=== PATIENT | female | born 1945 | race Caucasian/White ===

== ENCOUNTER 2020-08-20 19:17 | Inpatient (IN) | payer MEDICARE, OTHER ==
[~2020-08-20] VITALS: Ht 162.6 cm; Wt 59.4 kg
--- NOTE | 2020-08-20 20:09 | NUR ---
BLOOD COLLECTED AND SENT TO THE LAB
--- NOTE | 2020-08-20 20:13 | NUR ---
PATIENT CAME TO THE ER BED 7 C/O LEFT SIDED CHEST PAIN WITH PRESSURE SINCE 100 ON AND OFF. PATIENT STATES THAT SHE HAS NEVER HAD THIS PAIN BEFORE. PATIENT HAS HAD L BREAST CANCER AND HAD RADIATION THERAPY IN JUNE 2019. PATIENT CURRENTLY ON ANTI-CANCER MEDICATIONS. PATIENT IS ALERT AND ORIENTED x4. CURRENTLY DENIES SHORT OF BREATH. PATIENT IS CONNECTED TO THE SALES MANAGER. WILL CONTINUE TO MONITOR THE PATIENT CLOSELY.
[2020-08-20 20:28] LABS: CALCIUM, SERUM 9.2 mg/dL (8.5-10.1); CARBON DIOXIDE 27 mmol/L (21-32); CHLORIDE 105 mmol/L (98-107); CREATININE 0.8 mg/dL (0.6-1.3); GLUCOSE 98 mg/dL (74-106); POTASSIUM 4.2 mmol/L (3.5-5.1); SODIUM SERUM 141 mmol/L (136-145); UREA NITROGEN, BLOOD 23 mg/dL (7-18)
[2020-08-20] MEDS ORDERED: IV NS 0.9% 250 ML IV ONE (20:49)
[2020-08-20] MEDS ORDERED: IOHEXOL-350 100 ML VIAL IV ONE (20:49)
[2020-08-20] MEDS ORDERED: CT SWABBABLE VALVE TRANS SET 1 EA INFUS.SET MC ONE (20:49)
[2020-08-20 20:58] LABS: BASOPHILS # (AUTO) 0.1 K/uL (0.0-0.2); BASOPHILS % (AUTO) 1.3 % (0.0-2.0); HEMATOCRIT 41 % (33-45); HEMOGLOBIN 13.5 g/dL (11.5-14.8); LYMPHOCYTES # (AUTO) 1.4 K/uL (0.8-4.8); LYMPHOCYTES % (AUTO) 26.6 % (20.0-44.0); MEAN CORPUSCULAR HGB CONC 33 g/dl (31.0-36.0); MEAN CORPUSCULAR VOLUME 90 fL (82-100); MONOCYTES # (AUTO) 0.5 K/uL (0.1-1.30); MONOCYTES % (AUTO) 10.1 % (2.0-12.0); NEUTROPHILS # (AUTO) 3.1 K/uL (1.8-8.9); PLATELET COUNT (AUTO) 184 K/uL (150-450); RED BLOOD CELL COUNT(AUTO) 4.54 MIL/uL (4.0-5.2); WHITE BLOOD COUNT (AUTO) 5.2 K/uL (4.3-11.0)
--- NOTE | 2020-08-20 21:02 | NUR ---
PER DR DALAL, CANCEL CT WITH CONTRAST
--- NOTE | 2020-08-20 21:10 | NUR ---
PER ADMITTING, PT OKAY TO STAY HERE
[2020-08-20] MEDS ORDERED: NITROGLYCERIN PACKET 1 GM PACKET TOP ONE (21:30)
[2020-08-20] MEDS ORDERED: ASPIRIN 325 MG TABLET PO ONE (21:30)
--- NOTE | 2020-08-20 22:05 | NUR ---
PER DR DALAL, NEERU VERA VOLCANOLOGY TEACHER ACCEPTED
--- NOTE | 2020-08-20 22:24 | NUR ---
CALLED FOR TELE BED
[2020-08-20] MEDS ORDERED: ONDANSETRON HCL/PF 4 MG/2 ML VIAL IVP PRN (22:30)
[2020-08-20] MEDS ORDERED: MAGNESIUM HYDROXIDE 30 ML UDC PO PRN (22:30)
[2020-08-20] MEDS ORDERED: NITROGLYCERIN 0.4 MG/TAB BOTTLE SL PRN (22:30)
[2020-08-20] MEDS ORDERED: MORPHINE SULFATE INJ 2 MG/ML DISP.SYRIN IV PRN (22:30)
[2020-08-20] MEDS ORDERED: Z GUARD REMEDY 2 OZ OINT TP PRN (22:30)
--- NOTE | 2020-08-20 23:04 | NUR ---
COVID SWAB AND SENT TO LAB
[2020-08-21] VITALS (7 sets, daily range): BP systolic 103–126; BP diastolic 49–71
--- NOTE | 2020-08-21 00:03 | NUR ---
REPORT GIVEN TO VIVIEN CORNELL FOR TATYANA
[2020-08-21] MEDS ORDERED: ALPR0.5T PO (00:09)
[2020-08-21] MEDS ORDERED: EXEM25TA5 PO ×2 (00:09→02:19)
[2020-08-21] MEDS ORDERED: AMLO2.5T4 PO (00:09)
[2020-08-21] MEDS ORDERED: LEVO50TA8 PO (00:09)
--- NOTE | 2020-08-21 00:35 | NUR ---
RN ADMITTING NOTE REPORT RECEIVED FROM IFRAH PUGA. PATIENT ADMITTED TO TELE RM 308-2. PATIENT IS A/O X 4, ABLE TO MAKE NEEDS KNOWN. AMBULATES STEADILY. BREATHING EVEN AND UNLABORED, DOES NOT COMPLAIN OF ANY SOB OR CHEST PAIN AT THIS TIME. PATIENT'S SKIN IS INTACT. IV ACCESS R HAND 20 G PATENT AND INTACT. ORIENTED PATIENT TO THE ROOM, CHARGE NURSE, PRIMARY NURSE, AND INTEGRATION ASSISTANT. PATIENT BELONGINGS INVENTORIED AND RECORDED. SAFETY MEASURES IN PLACE: CALL LIGHT WITHIN REACH, BED IN LOCKED AND LOWEST POSITION, SIDE RAILS UP. WILL MONITOR PATIENT CLOSELY.
[2020-08-21] MEDS: IV NS 0.9% 1,000 ML IV PRN ×2 (00:53→20:52)
[2020-08-21] MEDS: ENOXAPARIN SODIUM 40 MG/0.4 ML DISP.SYRIN SQ SCH ×2 (01:21→20:44)
[2020-08-21] MEDS ORDERED: GABA-536 PO (02:19)
[2020-08-21] MEDS ORDERED: ACET325C7 PO (02:19)
[2020-08-21] MEDS ORDERED: FLUO15OI TP (02:19)
--- NOTE | 2020-08-21 07:15 | NUR ---
RN CLOSING NOTE PATIENT IN BED, AWAKE. DOES NOT COMPLAIN OF ANY CHEST PAIN AT THIS TIME. STILL TOLERATES ROOM AIR, NO SOB/DISTRESS NOTED. IV FLUIDS STILL ONGOING. ALL NEEDS MET AND ATTENDED, ALL ORDERS CARRIED OUT. SAFETY MEASURES MAINTAINED. ENDORSED TO DAY SHIFT NURSE FOR TATYANA. HOME MEDICATION BOTTLES GIVEN TO PHARMACY. Addendum: 08/21/20 at 0732 by IDA SAEED RN TELE READING READS SINUS FLORIAN 50 BPM WITH TRIGEMINY.
--- NOTE | 2020-08-21 07:30 | NUR ---
SAFETY CONSULTANT NOTES PT IN BED, AWAKE, ALERT AND ORIENTED, EATING BREAKFAST, NO COMPLAINT OF PAIN OR ANY DISCOMFORT, RESPIRATIONS NORMAL, IV FLUIDS INFUSING WELL, NEEDS ATTENDED.
[2020-08-21] MEDS ORDERED: Medication Not On Formulary EA (Acetaminophen (Tylenol) 650 MG) PO PRN (08:30)
[2020-08-21] MEDS ORDERED: LEVOTHYROXINE SODIUM 50 MCG TABLET PO SCH (08:30)
[2020-08-21] MEDS ORDERED: ALPRAZOLAM 0.5 MG TABLET PO PRN ×2 (08:30→10:00)
[2020-08-21] MEDS ORDERED: AMLODIPINE BESYLATE 2.5 MG TABLET PO SCH ×3 (09:00→22:00)
--- NOTE | 2020-08-21 09:05 | NUR ---
FIRE PREVENTION CAPTAIN NOTES PT SEEN BY DR. SCHRADER AND DR. ZALDIVAR, PLAN OF CARE DISCUSSED WITH PT, VERBALIZED UNDERSTANDING.
[2020-08-21 09:19] LABS: BASOPHILS # (AUTO) 0.1 K/uL (0.0-0.2); BASOPHILS % (AUTO) 2.4 % (0.0-2.0); HEMATOCRIT 39 % (33-45); HEMOGLOBIN 12.8 g/dL (11.5-14.8); LYMPHOCYTES # (AUTO) 1.1 K/uL (0.8-4.8); LYMPHOCYTES % (AUTO) 25.5 % (20.0-44.0); MEAN CORPUSCULAR HGB CONC 33 g/dl (31.0-36.0); MEAN CORPUSCULAR VOLUME 90 fL (82-100); MONOCYTES # (AUTO) 0.4 K/uL (0.1-1.30); MONOCYTES % (AUTO) 8.8 % (2.0-12.0); NEUTROPHILS # (AUTO) 2.5 K/uL (1.8-8.9); NEUTROPHILS % (AUTO) 59.3 % (43.0-81.0); PLATELET COUNT (AUTO) 157 K/uL (150-450); RED BLOOD CELL COUNT(AUTO) 4.29 MIL/uL (4.0-5.2); WHITE BLOOD COUNT (AUTO) 4.2 K/uL (4.3-11.0)
[2020-08-21] MEDS ORDERED: FLUOCINONIDE 0.05% TP PRN (10:00)
[2020-08-21 10:01] LABS: ALANINE AMINOTRANSFERASE 31 U/L (12-78); ALBUMIN 3.3 g/dL (3.4-5.0); ALKALINE PHOSPHATASE 119 U/L (46-116); ASPARTATE AMINOTRANSFERASE 19 U/L (15-37); BILIRUBIN,TOTAL 0.6 mg/dL (0.2-1.0); CALCIUM, SERUM 8.7 mg/dL (8.5-10.1); CARBON DIOXIDE 25 mmol/L (21-32); CHLORIDE 108 mmol/L (98-107); CREATININE 0.8 mg/dL (0.6-1.3); GLUCOSE 145 mg/dL (74-106); POTASSIUM 3.6 mmol/L (3.5-5.1); SODIUM SERUM 142 mmol/L (136-145); UREA NITROGEN, BLOOD 18 mg/dL (7-18)
[2020-08-21 10:05] LABS: CHOLESTEROL 167 mg/dL (<200); HDL CHOLESTEROL 38 mg/dL (40-60); LDL 108 mg/dL (0-99); TRIGLYCERIDES 102 mg/dL (30-150)
[2020-08-21] MEDS: AMLODIPINE 5 MG TABLET PO SCH ×2 (10:24→20:48)
[2020-08-21] MEDS: ASPIRIN 81 MG TAB.CHEW PO SCH (10:25)
[2020-08-21] MEDS: SYNTHROID PO SCH (10:26)
[2020-08-21] MEDS: ACETAMINOPHEN 325 MG TABLET PO PRN ×2 (13:35→20:49)
--- NOTE | 2020-08-21 18:12 | NUR ---
POLLUTION CONTROL CHEMIST NOTES PT IN BED, AWAKE, ALERT AND ORIENTED, DENIES PAIN AT THIS TIME, RESPIRATIONS NORMAL, CALL LIGHT WITHIN REACH, DAUGHTER AT BEDSIDE, PT ABLE TO AMBULATE TO THE BATHROOM WITH STEADY GAIT, ALL NEEDS ATTENDED.
--- NOTE | 2020-08-21 19:00 | NUR ---
AWAKE AND ALERT AND ORIENTATED X4 SMILING AND JOKING DENIES CHEST HEAVINESS OR PAIN WEARING EYE GLASSES
[2020-08-21] MEDS ORDERED: EXEMESTANE 25 MG TABLET PO SCH (22:00)
[2020-08-22] VITALS: BP 126/54
[2020-08-22 04:00] VITALS: BP_SYST 128; BP_SYST 129; BP_DIAS 58
--- NOTE | 2020-08-22 05:36 | NUR ---
REFUSED LOVENOX THIS SHIFT "I DON'T NEED IT" EXPLAINED TO HER THE REASON IT WAS ORDERED STILL MERLE ENJOYS CONVERSING WITH THE NURSE SPEECH CLEAR NO SOB TALKING IN SENTENCES SHE IS COOPERATIVE AND LAUGHING MONITOR READ SINUS FLORIAN 56 THIS AM EKG DONE AND PLACED IN THE CHART SHE DENIES PRESSURE OR CHEST PAIN THIS 12 HOURS HER COMPLAINT IS SHE IS UNABLE TO SLEEP THIS IS AN ONGOING PROBLEM FOR HER AND SHE DOESN'T WANT TO TAKE MEDICATION . STATES HER BODY IS SENSITIVE TO MEDICATION.
--- NOTE | 2020-08-22 07:41 | NUR ---
WASTEWATER TREATMENT SUPERVISOR OPENING NOTE RECEIVED PATIENT LYING IN BED, AWAKE, EATING BREAKFAST. A/O X4. STABLE ON ROOM AIR - NO SOB OR DISCOMFORT NOTED. IV ACCESS TO RIGHT HAND #20 - PATENT AND INTACT, REFUSES IV FLUIDS. PATIENT IS AMBULATORY. ASKING FOR THYROID MEDICATION - WILL ADMINISTER SHORTLY. SAFETY MEASURES IMPLEMENTED. CALL LIGHT WITHIN REACH. WILL CONTINUE TO MONITOR.
[2020-08-22] MEDS: ASPIRIN 81 MG TAB.CHEW PO SCH (08:07)
[2020-08-22] MEDS: SYNTHROID PO SCH (08:07)
[2020-08-22] MEDS: AMLODIPINE 5 MG TABLET PO SCH (08:07)
--- NOTE | 2020-08-22 09:35 | NUR ---
MS PHOTOSTAT OPERATOR NOTE PATIENT DISCHARGED AMA VIA PRIVATE CAR @ 0930. PATIENT STABLE, A/O X4. NO SOB OR DISCOMFORT NOTED. PATIENT STATES NO PAIN. PATIENT EXPRESSED THAT SHE WAS UNHAPPY SHE WAS NOT GETTING HER MEDICATIONS AT THE TIME SHE USUALLY TAKES THEM AT HOME. SHE STATED BEING IN THE HOSPITAL IS "KILLING HER". PATIENT DID NOT WANT TO WAIT FOR [facility] AND WANTED TO GO HOME. PATIENT SIGNED AMA FORM AND TOOK DISCHARGE PAPERWORK. IV REMOVED AND WRISTBAND REMOVED. PATIENT WAS WALKED DOWN TO LOBBY BY MYSELF AND PICKED UP BY HER DAUGHTER.
== END 2020-08-22 09:34 | disposition left against medical advice (07) | DRG 302 ==
LOC: ER 19:28 → TELE 08-21 00:22 → MED 08-22 08:40
PROVIDERS: ADMIT Nurse Practitioner Acute Care; ATTEND Nurse Practitioner Acute Care
DX: I25.10 Atherosclerotic heart disease of native coronary artery without angina pectoris (principal); J96.00 Acute respiratory failure, unspecified whether with hypoxia or hypercapnia; I24.9 Acute ischemic heart disease, unspecified; E03.9 Hypothyroidism, unspecified; F41.9 Anxiety disorder, unspecified; I10 Essential (primary) hypertension; Z85.3 Personal history of malignant neoplasm of breast; Z92.3 Personal history of irradiation; Z92.21 Personal history of antineoplastic chemotherapy; R00.1 Bradycardia, unspecified; Z20.822 Contact with and (suspected) exposure to COVID-19
CPT/HCPCS: 36415; 71045-TC; 80048-TC; 80053-TC; 80061-TC; 83735-TC; 83880; 84100-TC; 84443-TC; 84484-TC; 85025-TC; 85378-TC; 87081-TC; 93307-TC; C9803; G0378; J1650; J7030; J7050; Q9967